=== PATIENT | female | born 1965 | race Caucasian/White ===

== ENCOUNTER 2021-01-26 07:28 | Outpatient (CLI) | payer BC, SELFPAY ==
--- NOTE | ~2021-01-26 | DEXA_ITS ---
Bone Density Report Name: Vandana Jefferson Age: 55 Sex: Female Ethnicity: White Date of : 1965 Indication: postmenopausal; hysterectomy; Referring Provider: Lisa, Abdi Reardon Study: Bone densitometry was performed. Exam Date: January 26, 2021 Accession number: [id number] Bone Density: Region BMD T-score Z-score Classification AP Spine (L1-L4) 0.972 -0.7 0.6 Normal Femoral Neck (Left) 0.645 -1.8 -0.7 Osteopenia Total Hip (Left) 0.780 -1.3 -0.5 Osteopenia Total Hip Bilateral Avg 0.795 -1.2 -0.4 Osteopenia Femoral Neck (Right) 0.662 -1.7 -0.5 Osteopenia Total Hip (Right) 0.809 -1.1 -0.3 Osteopenia World Health Organization criteria for BMD impression classify patients as: Normal (T-score at or above -1.0), Osteopenia (T-score between -1.0 and -2.5), or Osteoporosis (T-score at or below -2.5). 10-year Fracture Risk(1): Major Osteoporotic Fracture 7.9% Hip Fracture 0.8% Reported Risk Factors: [place] (), Neck BMD=0.645, BMI=23.5 (1) FRAX(R) Version 3.08. Fracture probability calculated for an untreated patient. Fracture probability may be lower if the patient has received treatment. Clinical Information Provided by Patient: Has used the following medications: Vitamin D, Calcium Has the following medical conditions: Hysterectomy Patient maximum height was 68 Menopause Age: 25 Drinks caffeinated beverages Onset of menses at age 13 Number of children 3 Impression: The patient has low bone mass, based on the Left Femoral Neck T-score. The patient has an estimated ten-year risk of hip fracture of 0.8% and an estimated ten-year risk of major fracture of 7.9%, based on the WHO FRAX algorithm. Discussion: BONE DENSITY IS LOW AT ONE OR MORE SKELETAL SITES. This patient's lowest T-score is low at one or more skeletal sites. It meets the World Health Organization's (WHO) criteria for ?low bone mass? (T-score between -1.0 and -2.5). The patient's 10-year risk of fracture as calculated by FRAX is less than the threshold where pharmacological therapy is recommended by the National Osteoporosis Foundation (NOF). However, all treatment decisions require clinical judgment and consideration of individual patient factors, including patient preferences, comorbidities, previous drug use, risk factors not captured in the FRAX model (e.g., frailty, falls, vitamin D deficiency, increased bone turnover, interval significant decline in bone density) and possible under or overestimation of fracture risk by FRAX. The patient should follow a healthful lifestyle (good nutrition with adequate calcium and vitamin D, and appropriate weight-bearing exercise). Follow-Up: Consider repeating this study in 2 to 3 years to reassess this patient's status, or sooner if there is some new clinical indication. Reported by: [facility]
--- NOTE | ~2021-01-26 | MM_ITS ---
EXAMINATION: MM screening [facility] BI w desean HISTORY: Screening mammogram TECHNIQUE: Craniocaudal and mediolateral oblique 3-D tomosynthesis images were obtained and synthetic 2-D images were generated. CAD analysis was submitted and interpreted. COMPARISON: 11/27/2018, 02/28/2017, 02/21/2016 BREAST PARENCHYMAL COMPOSITION: There are scattered areas of fibroglandular density. FINDINGS: There is no evidence of suspicious mass, calcification, or architectural distortion to sugg est malignancy in either breast. There has been no suspicious interval change. IMPRESSION: 1. No mammographic evidence of malignancy. 2. Recommend routine screening mammography in one year. BI-RADS Category 1: Negative Reviewed, dictated and finalized at location A.
== END 2021-01-26 07:29 | disposition home or self-care (01) ==
LOC: ANHIMG 07:35
PROVIDERS: PCP Internal Medicine; Visit Provider Obstetrics & Gynecology Gynecologic Oncology
DX: Z12.31 Encounter for screening mammogram for malignant neoplasm of breast (principal); Z78.0 Asymptomatic menopausal state; M85.89 Other specified disorders of bone density and structure, multiple sites
CPT/HCPCS: 77063; 77067; 77080

== ENCOUNTER → 2021-05-01 07:52 | Outpatient (CLI) | payer BC, SELFPAY ==
--- NOTE | ~2021-05-01 | US_ITS ---
EXAMINATION: US abdomen complete EXAM DATE: 05/01/2021 08:39 INDICATION: Abdominal pain. TECHNIQUE: Multiple grayscale and Doppler images of the complete abdomen were obtained (by a technolo gist who performed the scan) and subsequently reviewed. There is no prior study for comparison. FINDINGS: The abdominal aorta is normal in caliber. Visualized portion IVC is patent. The pancreatic head a nd body are normal in appearance. The pancreatic tail is not visualized. The liver has normal echogenicity and contour. There are no focal liver lesions identified. There is no evidence of intrahepatic biliary duct dilation. Portal venous flow was seen in the hepatopedal , normal direction and has normal Doppler waveform. Common bile duct measures 3 mm, which is normal. The gallbladder fossa is unremarkable. Right kidney: There is normal contour and echogenicity. It measures 10.5 x 4.1 x 4.4 centimeters. There are no focal renal lesions identified. There is no hydronephrosis. Left kidney: There is normal contour and echogenicity. It measures 10.7 x 4.8 x 5.2 centimeters. T here are no focal renal lesions identified. There is no hydronephrosis. The spleen measures 10 centimeters which is normal in size. A focal slightly inferior marginal region was measured at 1.5 cm, probably splenule or other benign histology. IMPRESSION: 1. Unremarkable complete abdominal ultrasound exam. Reviewed, dictated and finalized at location A. [employer]
== END ==
PROVIDERS: PCP Internal Medicine; Visit Provider Physician Assistant Medical
DX: R10.9 Unspecified abdominal pain (principal)
CPT/HCPCS: 76700

== ENCOUNTER 2021-07-03 00:53 | Day surgery (SDC) | payer BC, SELFPAY ==
[2021-06-22 13:12] VITALS: BMI 22.8
[2021-07-03 07:43] VITALS: BP 123/59; PULSE 63; RESP 16; TEMP 36.7; O2SAT 100; BMI 22.8
[2021-07-03] MEDS: LACTATED RINGERS 1,000 ML 150 ML IV CONT (07:53)
--- NOTE | 2021-07-03 07:55 | WPDANESEPPF ---
Anes - Initial Pre Proc Eval Procedure: Operation Date: 07/03/21 08:30 Proposed Procedures p Esophagogastroduodenoscopy - Oswaldo Miller MD Date/Time: 07/03/21 07:55 Surgeon: Oswaldo Miller MD Pre Op Diagnosis: LUQP, epigastic pain Patient Data Age: 55 Gender: F Height: 1.73 m Weight: 68.2 kg Last Vital Signs Temp 36.7 C 07/03/21 07:43 Pulse 63 07/03/21 07:43 Resp 16 07/03/21 07:43 BP 123/59 L 07/03/21 07:43 Pulse Ox 100 07/03/21 07:43 Allergies Allergy/AdvReac Type Severity Reaction Status Date / Time TAMSULOSIN HCL AdvReac Severe HYPOTENSION Uncoded 07/03/21 07:42 Home Medications Medication Instructions Recorded Confirmed Type No Home Medications 06/20/21 07/03/21 History Patient hx anesthesia problems: none Family hx anesthesia problems: none Results Review: All pre-operative results and documents have been reviewed as part of the pre-operative evaluation. [facility] Past Medical History Medical History (Updated 07/03/21 @ 07:57 by Joselito Moore MD) Mitral valve prolapse Surgical History Surgical History (Updated 07/03/21 @ 07:57 by Joselito Moore MD) H/O: hysterectomy History of cholecystectomy Social History Social History Smoking status: Never smoker Alcohol intake: current Drinks per week: 1 Alcohol use details: social Substance use: never Substance use type: does not use Living arrangements: with family Spiritual care concerns: No Anes - Eval Final PreProcedure Day of Procedure 07/03/21 07:55 Patient weight: normal Heart: regular rate and rhythm Lungs: clear to auscultation Airway: Mallampati scale class II Neurological: alert and oriented Last oral intake: >/= 8 hours ASA classification: II Emergent: no Anesthetic plan: proceed Anesthesia type and monitoring: general GIVS and standard monitoring Results Review: All pre-operative results and documents have been reviewed as part of the pre-operative evaluation. Informed Consent: The patient's anesthetic plan and its attendant risks and benefits were discussed with the patient/family/POA. Questions were solicited and answers provided to the satisfaction of the patient/family/POA.
--- NOTE | 2021-07-03 08:33 | WPDGICN ---
Assessment and Plan Assessment and plan (1) Epigastric abdominal pain: Code(s): R10.13 - Epigastric pain Status: Acute Assessment and Plan: Patient with ongoing epigastric pain poorly responsive to brief trial of PPI and now H2 blockers. Plan is for a bland diet. EGD will be performed to evaluate for source of pain. Further recommendations will be given after endoscopy. GI Consult Note Consult date/time: 07/03/21 08:33 HPI: Vandana Jefferson is a 55 year old female Presents for EGD. Patient has complaints of epigastric and left upper quadrant pain. Feels a pressure pushing. Sometimes burning. Sometimes gaseous and belching. Often worse after eating. She initially tried [id number] Nexium for several weeks with no change in symptoms. Currently prescribed Tagamet 400mg p.o. b.i.d. with no certain response. She presents today for EGD. She is somewhat concerned both and daughter have had H pylori infections in the past. Patient denies any bleeding dysphagia or weight loss. She presents today for EGD. Review of Systems Review of Systems: All systems reviewed & are unremarkable except as noted in HPI and below PMFSH Past Medical History Medical History (Updated 07/03/21 @ 08:34 by Oswaldo Miller MD) Mitral valve prolapse Surgical History Surgical History (Updated 07/03/21 @ 07:57 by Joselito Moore MD) H/O: hysterectomy History of cholecystectomy Social History Social History Smoking status: Never smoker Alcohol intake: current Drinks per week: 1 Alcohol use details: social Substance use: never Substance use type: does not use Living arrangements: with family Spiritual care concerns: No Meds Home Medications and Allergies Home Medications Medication Instructions Recorded Confirmed Type No Home Medications 06/20/21 07/03/21 History Allergies Allergy/AdvReac Type Severity Reaction Status Date / Time TAMSULOSIN HCL AdvReac Severe HYPOTENSION Uncoded 07/03/21 07:42 Vital Signs Vital Signs - 24 hr 07/03/21 07:43 Temperature 98.1 F Pulse Rate 63 Respiratory Rate 16 Blood Pressure 123/59 L Pulse Oximetry 100 Exam Narrative: Physical exam reveals patient to be alert. Vital signs stable. HEENT exam is unremarkable. Patient is anicteric. Lungs are clear to auscultation and percussion. Heart is without murmur or extra sounds. Abdominal exam bowel sounds are present soft nontender with no organomegaly.
[2021-07-03 08:50] VITALS: BP 97/54; PULSE 69; RESP 19; O2SAT 100
[2021-07-03 09:00] VITALS: BP 110/62; PULSE 74; RESP 21; O2SAT 100
[2021-07-03 09:10] VITALS: BP 97/66; PULSE 60; RESP 15; O2SAT 100
== END 2021-07-03 09:24 | disposition home or self-care (01) ==
PROVIDERS: PCP Internal Medicine; Visit Provider Internal Medicine Gastroenterology
PROC: 0DJ08ZZ Inspection of Upper Intestinal Tract, Via Natural or Artificial Opening Endoscopic (ICD-10-PCS; CPT 43235; principal; 2021-07-03 08:30)
DX: R10.13 Epigastric pain (principal); I34.1 Nonrheumatic mitral (valve) prolapse
CPT/HCPCS: 43239; 87081; J2001; J2704; J7120

== ENCOUNTER 2022-12-12 15:59 | Outpatient (CLI) | payer BC, SELFPAY ==
--- NOTE | ~2022-12-12 | MM_ITS ---
EXAMINATION: MM screening [facility] BI w des[facility] HISTORY: Screening mammogram TECHNIQUE: Craniocaudal and mediolateral oblique 3-D tomosynthesis images were obtained and synthetic 2-D images were generated. CAD analysis was submitted and interpreted. COMPARISON: 01/26/2021, 11/27/2018, 02/28/2017 BREAST PARENCHYMAL COMPOSITION:There are scattered areas of fibroglandular density. FINDINGS: No suspicious mass, calcification, or architectural distortion are identified in either samantha ast to suggest malignancy. There has been no suspicious interval change. IMPRESSION: No mammographic evidence of malignancy. Recommend routine screening mammography in one year. BI-RADS Category 1: Negative Reviewed, dictated and finalized at location .
== END 2022-12-12 16:00 | disposition home or self-care (01) ==
LOC: ANHIMG 16:05
PROVIDERS: PCP Physician Assistant Medical
DX: Z12.31 Encounter for screening mammogram for malignant neoplasm of breast (principal)
CPT/HCPCS: 77063; 77067

== ENCOUNTER 2024-11-26 09:42 | Outpatient (CLI) | payer BC, SELFPAY ==
--- NOTE | ~2024-11-26 | MM_ITS ---
EXAMINATION: MM screening [facility] BI w desean HISTORY: Screening mammogram TECHNIQUE: Craniocaudal and mediolateral oblique 3-D tomosynthesis images were obtained and synthetic 2-D images were generated. CAD analysis was submitted and interpreted. COMPARISON: 12/12/2022, 01/26/2021, 11/27/2018 BREAST PARENCHYMAL COMPOSITION:Not Dense. There are scattered areas of fibroglandular density. FINDINGS: No suspicious mass, calcification, or architectural distortion are identified in either samantha ast to suggest malignancy. There has been no suspicious interval change. IMPRESSION: No mammographic evidence of malignancy. Recommend routine screening mammography in one year. BI-RADS Category 1: Negative Reviewed, dictated and finalized at location .
== END 2024-11-26 09:43 | disposition home or self-care (01) ==
PROVIDERS: PCP Physician Assistant Medical; Visit Provider Physician Assistant Medical
DX: Z12.31 Encounter for screening mammogram for malignant neoplasm of breast (principal)
CPT/HCPCS: 77063; 77067